=== PATIENT | female | born 1990 | race Caucasian/White ===

== ENCOUNTER 2016-10-08 19:24 | Emergency (ER) | payer OTHER ==
[~2016-10-08] VITALS: Ht 170.2 cm; Wt 65.9 kg
[~2016-10-08 19:24] MED LIST: HYDR-3498 PO; IBUP-1542 PO; MONT10TA21 PO; NITR-58 PO; RTPRO IH
[2016-10-08 20:37] VITALS: Ht 170.2 cm; Wt 65.9 kg
--- NOTE | 2016-10-08 22:05 | ERD ---
ER Documentation Chief Complaint Date/Time DATE: 10/08/16 TIME: 22:01 Chief Complaint MID CP NON RADIATING IN AM OFF AND ON WORSE NOW +SLIGHT LIP NUMBNESS NO SOB HPI 26-year-old female presents here in emergency department for complaint of mid chest pain on and off started this morning. Patient discussed the pain as sharp pain, 6/10 scale, worse upon taking a deep breath. Patient states that she was breathing fast onetime, started to have numbness in the lip area, at this time, denies any numbness. Patient denies any wheezing. Patient denies any cough. Patient denies any trauma. Patient denies any dyspnea on exertion or dyspnea on lying down. Patient denies any palpitations or irregular heartbeat. She denies any history of anxiety. ROS All systems reviewed and are negative except as per history of present illness. Medications Home Meds Active Scripts Ibuprofen* (Motrin*) 600 Mg Tab, 600 MG PO Q6, #30 TAB Prov:DEVIKA LANDIN 06/20/15 Nitrofurantoin Monohyd Macrocr (Macrobid) 100 Mg Capsr, 100 MG PO BID for 7 Days , CAP 0 Refills Prov:NAE BADILLO PA-C 06/15/15 Hydrocodone Bit-Acetaminophen* ([place]*) 5-325 Mg Tab, 1 TAB PO Q4H Y for PAIN, # 10 TAB Prov:NAE BADILLO PA-C 06/15/15 Reported Medications Montelukast Sodium* (Singulair*) 10 Mg Tablet, 10 MG PO DAILY 06/10/12 Albuterol Sulfate* (Proventil* Neb) 3 Ml Nebu, 3 ML IH DAILY 06/10/12 Allergies Allergies: Coded Allergies: No Known Allergy (Verified , 02/18/14) PMhx/Soc Medical and Surgical Hx: pt denies Surgical Hx History of Surgery: No Anesthesia Reaction: No Hx Neurological Disorder: No Hx Respiratory Disorders: Yes (ASTHMA) Hx Cardiac Disorders: No Hx Psychiatric Problems: No Hx Miscellaneous Medical Probl: No Hx Alcohol Use: No Hx Substance Use: No Hx Tobacco Use: No Smoking Status: Never smoker FmHx Family History: No coronary disease, No diabetes, No other Physical Exam Vitals Vital Signs Date Time Temp Pulse Resp B/P Pulse Ox O2 Delivery O2 Flow Rate FiO2 10/08/16 20:37 99.2 71 18 125/77 99 Physical Exam GENERAL: The patient is well developed and appropriate for usual state of health, in no apparent distress. CHEST: Clear to auscultation bilaterally. There are no rales, wheezes or rhonchi. Noted tenderness on palpation mid chest area. HEART: Regular rate and rhythm. No murmurs, clicks, rubs or gallops. No S3 or S4. ABDOMEN: Soft, nontender and nondistended. Good bowel sounds. No rebound or guarding. No gross peritonitis. No gross organomegaly or masses. No Barlow sign or McBurney point tenderness. BACK: No midline or flank tenderness. EXTREMITIES: Equal pulses bilaterally. There is no peripheral clubbing, cyanosis or edema. No focal swelling or erythema. Full range of motion. Grossly neurovascularly intact. NEURO: Alert and oriented. Cranial nerves 2-12 intact. Motor strength in all 4 extremities with 5/5 strength. Sensation grossly intact. Normal speech and gait. SKIN: There is no apparent rash or petechia. The skin is warm and dry. HEMATOLOGIC AND LYMPHATIC: There is no evidence of excessive bruising or lymphedema. No gross cervical, axillary, or inguinal lymphadenopathy. Results 24 hrs EKG was done, read by me and is normal sinus rhythm at a rate of 76, normal axis , there is no ST changes or changes in the EKG that indicates any cardiac emergencies at this time. Patient's EKG was also reviewed by Dr. Christina and Dr Navas. Impression: no acute findings on EKG PROCEDURE: XR Chest AP portable CLINICAL INDICATION: Chest pain TECHNIQUE: An AP portable radiograph of the chest was submitted. COMPARISON: None. FINDINGS: Support Hardware: None Cardiovascular: The cardiovascular silhouette appears unremarkable. Lung Natarajan: The lung natarajan appear clear with no nodule, alveolar infiltrate, or interstitial prominence evident. Pleural Spaces: No pneumothorax or pleural effusion is identified. Osseous Structures: The osseous structures appear intact. Soft Tissues: The soft tissues appear unremarkable. IMPRESSION: Unremarkable portable chest. Physician Isabel Date Time Electronically viewed and signed by Physician Isabel on 10/08/2016 22:19 RH/ CC: YVETTE VICENTE NP Procedures/MDM Medical Decision Making: There is low suspicion for cardiopulmonary emergencies at this time. Patient has low risk factors. EKG is normal, there is no changes in the EKG that indicates cardiac emergencies. Chest X-ray does not show cardiopulmonary emergencies at this time. There is low suspicion for aortic aneurysm, myocardial infarction, pneumothorax, pleural effusion, pulmonary embolism, or any other cardiopulmonary emergencies at this time. Rx: Ibuprofen, advised to follow up with primary care doctor to 3 days, avoid heavy lifting, patient is advised to see emr specialist if symptoms Persist. Patient advised to return to emergency department for any worsening symptoms Departure Diagnosis: Primary Impression: Chest wall pain Patient Instructions: Chest Wall Pain, Costochondritis Additional Instructions: Rx: Ibuprofen, advised to follow up with primary care doctor to 3 days, avoid heavy lifting, patient is advised to see emr specialist if symptoms Persist. Patient advised to return to emergency department for any worsening symptoms YVETTE VICENTE NP Oct 08, 2016 22:04
--- NOTE | 2016-10-08 22:20 | RADRPT ---
PROCEDURE: XR Chest AP portable CLINICAL INDICATION: Chest pain TECHNIQUE: An AP portable radiograph of the chest was submitted. COMPARISON: None. FINDINGS: Support Hardware: None Cardiovascular: The cardiovascular silhouette appears unremarkable. Lung Nieto: The lung nieto appear clear with no nodule, alveolar infiltrate, or interstitial promi nence evident. Pleural Spaces: No pneumothorax or pleural effusion is identified. Osseous Structures: The osseous structures appear intact. Soft Tissues: The soft tissues appear unremarkable. IMPRESSION: Unremarkable portable chest. Physician Isabel Date Time Electronically viewed and signed by Moo Wright Physician on 10/08/2016 22:19 /
[2016-10-08] MEDS ORDERED: IBUP-1542 PO (22:22)
== END 2016-10-08 23:03 | disposition home or self-care (01) ==
LOC: FTE 19:24
DX: R07.89 Other chest pain (principal); J45.909 Unspecified asthma, uncomplicated
CPT/HCPCS: 71010; 93005; Z7502

== ENCOUNTER 2016-10-22 13:44 | Emergency (ER) | payer OTHER ==
[~2016-10-22] VITALS: Wt 65.0 kg
[2016-10-22] MEDS ORDERED: PIP1KIT TOP (14:26)
--- NOTE | 2016-10-22 14:30 | ERD ---
ER Documentation Chief Complaint Date/Time DATE: 10/22/16 TIME: 14:29 Chief Complaint LICE FOUND ON DAUGHTER. NEEDS RX . NO DISTRESS HPI This 26-year-old female presents after having a friend find a [place] head yesterday. She is also found some in her daughter's hair. Daughter is here for similar complaints and a positive lice was found in the scalp today. Patient has mild itching without fevers, vomiting, shortness breath or chest pain. ROS All systems reviewed and are negative except as per history of present illness. Medications Home Meds Active Scripts Pip Butox/Pyrethrins/Permeth (Rid Complete Lice Kit) 1 Each Kit, 1 EACH TOP ONCE for 1 Day, KIT Prov:EILEEN ESCUDERO MD 10/22/16 Ibuprofen* (Motrin*) 600 Mg Tab, 600 MG PO Q6H Y for PAIN AND OR ELEVATED TEMP, #30 TAB Prov:YVETTE VICENTE NP 10/08/16 Ibuprofen* (Motrin*) 600 Mg Tab, 600 MG PO Q6, #30 TAB Prov:DEVIKA LANDIN 06/20/15 Nitrofurantoin Monohyd Macrocr (Macrobid) 100 Mg Capsr, 100 MG PO BID for 7 Days , CAP 0 Refills Prov:NAE BADILLO PA-C 06/15/15 Hydrocodone Bit-Acetaminophen* ([place]*) 5-325 Mg Tab, 1 TAB PO Q4H Y for PAIN, # 10 TAB Prov:NAE BADILLO PA-C 06/15/15 Reported Medications Montelukast Sodium* (Singulair*) 10 Mg Tablet, 10 MG PO DAILY 06/10/12 Albuterol Sulfate* (Proventil* Neb) 3 Ml Nebu, 3 ML IH DAILY 06/10/12 Allergies Allergies: Coded Allergies: No Known Allergy (Verified , 02/18/14) PMhx/Soc Medical and Surgical Hx: pt denies Medical Hx, pt denies Surgical Hx History of Surgery: No Anesthesia Reaction: No Hx Neurological Disorder: No Hx Respiratory Disorders: Yes (ASTHMA) Hx Cardiac Disorders: No Hx Psychiatric Problems: No Hx Miscellaneous Medical Probl: No Hx Alcohol Use: No Hx Substance Use: No Hx Tobacco Use: No Physical Exam Vitals Vital Signs Date Time Temp Pulse Resp B/P Pulse Ox O2 Delivery O2 Flow Rate FiO2 3/27/17 13:47 98.8 76 21 131/70 98 Physical Exam Const: [] Alert, [id number] per Head: Atraumatic. No obvious lice found but there is lysed from the daughter scalp today. Eyes: Normal Conjunctiva ENT: Normal External Ears, Nose and Mouth. Neck: Full range of motion..~ No meningismus. Resp: Clear to auscultation bilaterally Cardio: Regular rate and rhythm, no murmurs Abd: Soft, non tender, non distended. Normal bowel sounds Skin: No petechiae or rashes Back: No midline or flank tenderness Ext: No cyanosis, or edema Neur: Awake and alert Psych: Normal Mood and Affect Procedures/MDM Patient presents with signs of likely lice infestation and positive household contacts. She will be treated with rid as directed. The patient was stable with no new complaints during the ER course. Clinically, there is no current evidence to suggest meningitis, sepsis, acute abdomen, pneumonia, acute coronary syndrome, pulmonary embolism, or any other emergent condition appearing to require further evaluation or hospitalization. The patient should certainly return for any new or worsening symptoms per the aftercare instructions. They should otherwise follow-up with her primary care doctor for reevaluation this week. Departure Diagnosis: Primary Impression: Lice infested hair Condition: Stable Patient Instructions: Lice, Head, Lice Treatment Shampoo, Lice Treatment Topical suspension, cleanser EILEEN ESCUDERO MD Oct 22, 2016 14:30
== END 2016-10-22 14:46 | disposition home or self-care (01) ==
LOC: FTE 13:44
DX: B85.0 Pediculosis due to Pediculus humanus capitis (principal); J45.909 Unspecified asthma, uncomplicated
CPT/HCPCS: 99283

== ENCOUNTER 2018-11-05 14:33 | Emergency (ER) | payer OTHER ==
[~2018-11-05] VITALS: Ht 167.6 cm; Wt 75.5 kg
[~2018-11-05 14:33] MED LIST changes: +PIP1KIT TOP
[2018-11-05 14:42] VITALS: BP 120/75; PULSE 64; RESP 18; Ht 167.6 cm; Wt 75.5 kg
[2018-11-05] MEDS ORDERED: KETOROLAC 30 MG INJ IM STA (16:01)
[2018-11-05] MEDS ORDERED: OXYC-279 PO (16:03)
[2018-11-05] MEDS ORDERED: IBUP-1542 PO (16:03)
[2018-11-05] MEDS ORDERED: OXYCODONE/ACETAMINOPHEN (5/325) TAB PO ONE (16:30)
--- NOTE | 2018-11-16 16:48 | ERD ---
ER Documentation Chief Complaint Chief Complaint back pain HPI Overweight 28-year-old woman complains of low back pain after getting out of the car this morning, pain worse with ambulation and bending forward. She states the pain was sharp nonradiating and nonexertional. She denies paresis or paresthesias, no loss of bowel or bladder control, no complaints of chest pain or shortness of breath, no recent falls or recent trauma. Patient denies prior episodes of similar pain. ROS All systems reviewed and are negative except as per history of present illness. Medications Home Meds Active Scripts Ibuprofen* (Motrin*) 600 Mg Tab, 600 MG PO Q8 PRN for PAIN AND/OR INFLAMMATION, #30 TAB Prov:PRICE LAROSE MD 11/05/18 Oxycodone HCl/Acetaminophen (Percocet 5-325 mg Tablet) 1 Each Tablet, 1 EACH PO TID PRN for PAIN LEVEL 6-10, #12 TAB Prov:PRICE LAROSE MD 11/05/18 Pip Butox/Pyrethrins/Permeth (Rid Complete Lice Kit) 1 Each Kit, 1 EACH TOP ONCE for 1 Day, KIT Prov:EILEEN ESCUDERO MD 10/22/16 Ibuprofen* (Motrin*) 600 Mg Tab, 600 MG PO Q6H PRN for PAIN AND OR ELEVATED TEMP, #30 TAB Prov:YVETTE VICENTE NP 10/08/16 Ibuprofen* (Motrin*) 600 Mg Tab, 600 MG PO Q6, #30 TAB Prov:DEVIKA LANDIN 06/20/15 Nitrofurantoin Monohyd Macrocr (Macrobid) 100 Mg Capsr, 100 MG PO BID for 7 Days, CAP 0 Refills Prov:NAE BADILLO PA-C 06/15/15 Hydrocodone Bit-Acetaminophen* ([place]*) 5-325 Mg Tab, 1 TAB PO Q4H PRN for PAIN, #10 TAB Prov:NAE BADILLO PA-C 06/15/15 Reported Medications Montelukast Sodium* (Singulair*) 10 Mg Tablet, 10 MG PO DAILY 06/10/12 Albuterol Sulfate* (Proventil* Neb) 3 Ml Nebu, 3 ML IH DAILY 06/10/12 Allergies Allergies: Coded Allergies: No Known Allergy (Verified , 02/18/14) PMhx/Soc History of Surgery: No Anesthesia Reaction: No Hx Neurological Disorder: No Hx Respiratory Disorders: Yes (ASTHMA) Hx Cardiac Disorders: No Hx Psychiatric Problems: No Hx Miscellaneous Medical Probl: No Hx Alcohol Use: No Hx Substance Use: No Hx Tobacco Use: No Smoking Status: Never smoker FmHx Family History: No diabetes Physical Exam Vitals Per nurse's records Physical Exam GENERAL: Well-developed, well-nourished, mild discomfort, afebrile HEENT: Moist mucous membranes, pink conjunctiva, no cervical spine tenderness or step-off deformities, no goiter, no jaundice or icterus NEURO: Alert and oriented 3, cranial nerves II through XII intact bilaterally, pupils equal round reactive to light, no focal deficits or facial asymmetry, sensation intact distally Strength 5/5 in upper and lower extremities bilaterally CARDIAC: Regular rate and rhythm, no murmurs rubs or gallops LUNGS: Clear bilaterally no wheezing crackles or stridor ABDOMEN: Soft nontender, no guarding, no rigidity, no rebound, no psoas sign no obturator sign. SKIN: Warm and dry to touch, no abrasions, contusions, or hematomas, no lacerations, no ecchymosis, no target lesions, and without ulcers EXTREMITIES: No clubbing cyanosis or edema, calves are bilaterally symmetrical, no Homans sign, no popliteal cord sign. Distal pulses equal and bilateral PSYCH: Normal affect without agitation or irritability Results 24 hrs Laboratory Tests Test 11/05/18 16:20 POC Beta HCG, Qualitative NEGATIVE Current Medications Medications Dose Sig/Marielena Start Time Status Last (Trade) Ordered Route PRN Stop Time Admin Dose Reason Admin Ketorolac 30 mg ONCE STAT 11/05/18 DC 11/05/18 Tromethamine IM 16:01 16:26 (Toradol) 11/05/18 16:02 Oxycodone/ 1 tab ONCE ONCE 11/05/18 DC 11/05/18 Acetaminophen PO 16:30 16:25 (Percocet 11/05/18 16:31 (5/ 325)) Procedures/MDM Examination of the back was unremarkable and patient has no neurologic findings, I treated her here with Toradol IM injection and Percocet 1 tablet p.o. Patient's pain did improve and she is ambulatory without difficulty although I did tell her if her pain continues she may require MR imaging of the back to rule out herniated disc or partial cord impingement, although unlikely. Differential diagnoses considered, included but not limited to acute coronary syndrome, pulmonary embolism, aortic dissection, abdominal aortic aneurysm, sepsis, stroke, meningitis, encephalitis, pneumonia, appendicitis, cholecystitis, bowel obstruction, pyelonephritis, nephrolithiasis, cystitis, as well as metabolic, hematologic, and electrolyte abnormalities. As well as abs cess, cellulitis, fractures, and dislocations. Patient feels much better at this time, and vital signs are normal, symptoms hav e improved. I did give strict instructions to return to the ED if symptoms continue or worsen, patient will otherwise follow-up with primary care physician. Patient understood instructions and agreed to plan. Disclaimer: Inadvertent spelling and grammatical errors are likely due to EHR/dictation software use and do not reflect on the overall quality of patient care. Also, please note that the electronic time recorded on this note does not necessarily reflect the actual time of the patient encounter. Departure Diagnosis: Primary Impression: Back pain Back pain location: low back pain Chronicity: acute Back pain laterality: bilateral Sciatica presence: without sciatica Qualified Codes: M54.5 - Low back pain Additional Impression: Lumbar sprain Encounter type: initial encounter Qualified Codes: S33.5XXA - Sprain of ligaments of lumbar spine, initial encounter Condition: Good Patient Instructions: Back Sprain/Strain, Herniated Intervertebral Disc PRICE LAROSE MD Nov 16, 2018 16:48
== END 2018-11-05 16:38 | disposition home or self-care (01) ==
LOC: FTE 14:33
DX: S33.5XXA Sprain of ligaments of lumbar spine, initial encounter (principal); J45.909 Unspecified asthma, uncomplicated; X58.XXXA Exposure to other specified factors, initial encounter; Y92.9 Unspecified place or not applicable
CPT/HCPCS: 81025; 96372; J1885; Z7502; Z7610

== ENCOUNTER 2019-02-16 17:32 | Emergency (ER) | payer OTHER ==
[~2019-02-16] VITALS: Ht 162.6 cm; Wt 79.4 kg
[~2019-02-16 17:32] MED LIST changes: +OXYC-279 PO
[2019-02-16 17:35] VITALS: Ht 162.6 cm; Wt 79.4 kg
--- NOTE | 2019-02-16 17:46 | EN ---
Date/Time of Note Date/Time of Note DATE: 02/16/19 TIME: 17:45 ER Progress Note [id number]-old female with left knee pain after twisting while moving furniture 3 days ago. Medial tenderness with effusion. X-ray ordered. Requesting injection for inflammation. ED 2 appropriate. EIELEN ESCUDERO MD Feb 16, 2019 17:46
[2019-02-16] MEDS ORDERED: IBUP-1542 PO (18:45)
[2019-02-16] MEDS ORDERED: KETOROLAC 60 MG INJ IM STA (18:48)
--- NOTE | 2019-02-16 18:53 | ERD ---
ER Documentation Chief Complaint Chief Complaint left knee pain x 2 days ago HPI 28-year-old female presents with left knee pain for last 2 days after twisting while moving some furniture. She denies fall. She has pain and swelling primarily on the medial aspect. She denies calf swelling, shortness of breath, redness. She denies weakness. ROS All systems reviewed and are negative except as per history of present illness. Medications Home Meds Active Scripts Ibuprofen* (Motrin*) 600 Mg Tab, 600 MG PO Q6, #20 TAB Prov:EILEEN ESCUDERO MD 02/16/19 Ibuprofen* (Motrin*) 600 Mg Tab, 600 MG PO Q8 PRN for PAIN AND/OR INFLAMMATION, #30 TAB Prov:PRICE LAROSE MD 11/05/18 Oxycodone HCl/Acetaminophen (Percocet 5-325 mg Tablet) 1 Each Tablet, 1 EACH PO TID PRN for PAIN LEVEL 6-10, #12 TAB Prov:PRICE LAROSE MD 11/05/18 Pip Butox/Pyrethrins/Permeth (Rid Complete Lice Kit) 1 Each Kit, 1 EACH TOP ONCE for 1 Day, KIT Prov:EILEEN ESCUDERO MD 10/22/16 Ibuprofen* (Motrin*) 600 Mg Tab, 600 MG PO Q6H PRN for PAIN AND OR ELEVATED TEMP, #30 TAB Prov:YVETTE VICENTE NP 10/08/16 Ibuprofen* (Motrin*) 600 Mg Tab, 600 MG PO Q6, #30 TAB Prov:DEVIKA LANDIN 06/20/15 Nitrofurantoin Monohyd Macrocr (Macrobid) 100 Mg Capsr, 100 MG PO BID for 7 Days, CAP 0 Refills Prov:NAE BADILLO PA-C 06/15/15 Hydrocodone Bit-Acetaminophen* ([place]*) 5-325 Mg Tab, 1 TAB PO Q4H PRN for PAIN, #10 TAB Prov:NAE BADILLO PA-C 06/15/15 Reported Medications Montelukast Sodium* (Singulair*) 10 Mg Tablet, 10 MG PO DAILY 06/10/12 Albuterol Sulfate* (Proventil* Neb) 3 Ml Nebu, 3 ML IH DAILY 06/10/12 Allergies Allergies: Coded Allergies: No Known Allergy (Verified , 02/18/14) PMhx/Soc Medical and Surgical Hx: pt denies Surgical Hx History of Surgery: No Anesthesia Reaction: No Hx Neurological Disorder: No Hx Respiratory Disorders: Yes (ASTHMA) Hx Cardiac Disorders: No Hx Psychiatric Problems: No Hx Miscellaneous Medical Probl: No Hx Alcohol Use: No Hx Substance Use: No Hx Tobacco Use: No Smoking Status: Never smoker FmHx Family History: No diabetes, No coronary disease, No other Physical Exam Vitals Vital Signs Date Temp Pulse Resp B/P (MAP) Pulse Ox O2 O2 Flow FiO2 Time Delivery Rate 02/16/19 97.9 68 18 111/70 97 17:35 (84) Physical Exam Const: No acute distress Head: Atraumatic Eyes: Normal Conjunctiva ENT: Normal External Ears, Nose and Mouth. Neck: Full range of motion. No meningismus. Resp: Clear to auscultation bilaterally Cardio: Regular rate and rhythm, no murmurs Abd: Soft, non tender, non distended. Normal bowel sounds Skin: No petechiae or rashes Back: No midline or flank tenderness Ext: No cyanosis, or edema. Mild effusion. No deformities. Mild generalized tenderness on the medial aspect of left knee. No erythema or warmth. No calf swelling or Homans sign. No appreciable deficits. Neur: Awake and alert Psych: Normal Mood and Affect Results 24 hrs Current Medications Medications Dose Sig/Marielena Start Time Status Last (Trade) Ordered Route PRN Stop Time Admin Dose Reason Admin Ibuprofen 600 mg ONCE ONCE 02/16/19 DC (Motrin) PO 19:00 02/16/19 19:00 Ketorolac 60 mg ONCE STAT 02/16/19 DC Tromethamine IM 18:48 (Toradol) 02/16/19 18:49 Procedures/MDM X-ray left knee 3V Interpreted by me: Bones: No fracture Joints: No dislocation Foreign body: None. Impression-normal left knee x-ray Patient is placed in left knee immobilizer and given crutches with crutch training. Patient given Toradol 60 mg IM request. Patient presents with knee pain after awkward movement 2 days ago. Likely a sprain or ligamentous injury. Is no signs of fracture, dislocation, septic arthritis, DVT, deficits, additional concerning signs or symptoms. She will be discharged home with primary care and orthopedic follow-up. She is to return for fevers, redness, new or worsening symptoms. The patient was stable with no new complaints during the ER course. Clinically, there is no current evidence to suggest meningitis, sepsis, acute abdomen, pneumonia, stroke, acute coronary syndrome, pulmonary embolism, aortic dissection or any other emergent condition appearing to require further evaluation or hospitalization. Patient counseled regarding my diagnostic impression and care plan. Prior to discharge all questions answered. Pt agrees with treatment plan and understands strict return precautions. Pt is instructed to follow up with primary care provider within 24-48 hours. Precautionary instructions provided including instructions to return to the ER if not improving or for any worsening or changing symptoms or concerns. Disclaimer: Inadvertent spelling and grammatical errors are likely due to EHR/dictation software use and do not reflect on the overall quality of patient care. Also, please note that the electronic time recorded on this note does not necessarily reflect the actual time of the patient encounter. Departure Diagnosis: Primary Impression: Knee injury Encounter type: initial encounter Laterality: left Qualified Codes: S89.92XA - Unspecified injury of left lower leg, initial encounter Condition: Stable Patient Instructions: Knee Sprain Referrals: DOCTOR,NOT ON STAFF FOREIGN HARRIS MD Additional Instructions: X-ray read as normal. Likely sprain or ligament injury. Recommend see primary doctor and orthopedist for further evaluation for pain despite rest and ice over the next week. Recheck sooner for fevers, redness, new worsening symptoms. May need authorization from primary doctor for orthopedist visit. EILEEN ESCUDERO MD Feb 16, 2019 18:53
[2019-02-16] MEDS ORDERED: IBUPROFEN 600 MG TAB PO ONE (19:00)
== END 2019-02-16 19:22 | disposition home or self-care (01) ==
LOC: FTE 17:32
DX: S89.92XA Unspecified injury of left lower leg, initial encounter (principal); J45.909 Unspecified asthma, uncomplicated; X50.1XXA Overexertion from prolonged static or awkward postures, initial encounter; Y92.9 Unspecified place or not applicable
CPT/HCPCS: 29505; 73562; 81025; 96372; J1885; Z7502; Z7610